=== PATIENT | male | born 1960 | race Native Hawaiian/Other Pacific Islander ===

== ENCOUNTER 2018-03-27 15:24 | Emergency (ER) | payer OTHER ==
[~2018-03-27] VITALS: Ht 188 cm; Wt 136.1 kg
[2018-03-27] MEDS ORDERED: ASA LOW DOSE81 MG PO (15:42)
[2018-03-27] MEDS ORDERED: METFORMIN ER1000 MG PO (15:42)
[2018-03-27] MEDS ORDERED: LISI20TA11 PO (15:43)
[2018-03-27] MEDS ORDERED: LIPITOR20 MG PO (15:43)
[2018-03-27] MEDS ORDERED: METO-837 PO (15:44)
[2018-03-27] MEDS ORDERED: GLIM2TAB PO (15:45)
[2018-03-27] MEDS ORDERED: CLON0.5T36 PO (15:46)
[2018-03-27] MEDS ORDERED: RANI150T78 PO (15:46)
[2018-03-27] MEDS ORDERED: ACID REDUCER20 MG PO (15:47)
[2018-03-27] MEDS ORDERED: BUPROPION HYDR150 MG PO (15:48)
[2018-03-27] MEDS ORDERED: METRONIDAZOLE500 MG PO (15:49)
[2018-03-27] MEDS ORDERED: INSUINJP SC (15:50)
[2018-03-27] MEDS ORDERED: AMIODARONE HYD200 MG PO (15:51)
[2018-03-27 17:03] LABS: PLATELET COUNT 177 K/uL (142-355)
[2018-03-27 17:11] LABS: POTASSIUM 4.4 mmol/L (3.6-5.2)
[2018-03-27 18:05] VITALS: BP 135/69; TEMP 98
== END 2018-03-27 18:05 | disposition home or self-care (01) ==
LOC: ED 15:24
PROVIDERS: Family Medicine
DX: S90.32XA Contusion of left foot, initial encounter (principal); S90.31XA Contusion of right foot, initial encounter; W18.39XA Other fall on same level, initial encounter; Y92.89 Other specified places as the place of occurrence of the external cause
CPT/HCPCS: 36415; 80053; 81000; 85027; 99283

== ENCOUNTER 2018-08-25 20:55 | Inpatient (IN) | payer OTHER ==
[~2018-08-25] VITALS: Ht 193 cm; Wt 145.8 kg
[~2018-08-25 20:55] MED LIST: ACID REDUCER20 MG PO; AMIODARONE HYD200 MG PO; ASA LOW DOSE81 MG PO; BUPROPION HYDR150 MG PO; CLON0.5T36 PO; GLIM2TAB PO; INSUINJP SC; LIPITOR20 MG PO; LISI20TA11 PO; METFORMIN ER1000 MG PO; METO-837 PO; METRONIDAZOLE500 MG PO; RANI150T78 PO
[2018-08-25 21:15] VITALS: BP 173/84; TEMP 98.3
[2018-08-26 01:40] LABS: PLATELET COUNT 172 K/uL (142-355)
[2018-08-26 01:51] LABS: POTASSIUM 4.2 mmol/L (3.6-5.2); SODIUM 134 mmol/L (136-145)
[2018-08-26 08:00] VITALS: BP 150/82; TEMP 97.9
[2018-08-26 08:18] VITALS: BP 173/84; TEMP 98.3; Ht 193 cm; Wt 145.8 kg
[2018-08-26 08:38] LABS: PLATELET COUNT 145 K/uL (142-355)
[2018-08-26 08:52] LABS: POTASSIUM 4.1 mmol/L (3.6-5.2)
[2018-08-26 12:00] VITALS: BP 110/56; TEMP 97.8
[2018-08-26 16:00] VITALS: BP 108/64; TEMP 97.8
[2018-08-26 20:00] VITALS: BP 147/66; TEMP 98.2
[2018-08-27] VITALS: BP 122/63; TEMP 98.8
[2018-08-27 04:00] VITALS: BP 125/64; TEMP 98.5
[2018-08-27 08:00] VITALS: BP 120/70; TEMP 98
[2018-08-27 10:53] LABS: PLATELET COUNT 147 K/uL (142-355)
[2018-08-27 11:05] LABS: POTASSIUM 4.2 mmol/L (3.6-5.2)
[2018-08-27 12:00] VITALS: BP 130/66; TEMP 98.5
[2018-08-27 16:00] VITALS: BP 97/49; TEMP 98.3
[2018-08-27 20:00] VITALS: BP 130/73; TEMP 98
[2018-08-28] VITALS: BP 123/60; TEMP 97.8
[2018-08-28 04:00] VITALS: BP 140/77; TEMP 98.3
[2018-08-28 04:58] LABS: PLATELET COUNT 162 K/uL (142-355)
[2018-08-28 05:17] LABS: POTASSIUM 3.9 mmol/L (3.6-5.2)
[2018-08-28 08:00] VITALS: BP 145/79; TEMP 98.1
[2018-08-28 12:00] VITALS: BP 171/78; TEMP 98.2
== END 2018-08-28 13:30 | disposition home or self-care (01) | DRG 439 ==
LOC: ED 20:55 → MED/SURG 08-26 02:22
PROVIDERS: Family Medicine; ADMIT Family Medicine
DX: K86.1 Other chronic pancreatitis (principal); E87.1 Hypo-osmolality and hyponatremia; F41.8 Other specified anxiety disorders; I48.2 Chronic atrial fibrillation; I25.10 Atherosclerotic heart disease of native coronary artery without angina pectoris; E78.49 Other hyperlipidemia; E66.01 Morbid (severe) obesity due to excess calories; Z68.39 Body mass index [BMI] 39.0-39.9, adult; Z71.3 Dietary counseling and surveillance; J44.9 Chronic obstructive pulmonary disease, unspecified; E11.9 Type 2 diabetes mellitus without complications; F17.200 Nicotine dependence, unspecified, uncomplicated; K21.9 Gastro-esophageal reflux disease without esophagitis
CPT/HCPCS: 36415; 74022; 80053; 80061; 82150; 82248; 82550; 82553; 83690; 84484; 85027; 85651; 86140; 93005; 94760; 96365; 96374; 96375; 99284; J0744; J1650; J1815; J1885; J2270; J2405; J3490

== ENCOUNTER 2019-12-14 20:43 | Emergency (ER) | payer OTHER ==
[~2019-12-14] VITALS: Ht 190.5 cm; Wt 131.1 kg
[2019-12-14 21:40] VITALS: BP 114/63; TEMP 98.1
== END 2019-12-14 21:40 | disposition home or self-care (01) ==
LOC: ED 20:43
DX: S62.601A Fracture of unspecified phalanx of left index finger, initial encounter for closed fracture (principal); W26.8XXA Contact with other sharp object(s), not elsewhere classified, initial encounter; Y93.89 Activity, other specified; Y92.018 Other place in single-family (private) house as the place of occurrence of the external cause
CPT/HCPCS: 90471; 90715; 96372; 99283; J0690; J1885

== ENCOUNTER 2020-05-14 02:48 | Observation (INO) | payer OTHER ==
[2020-05-14] VITALS (7 sets, daily range): BP systolic 141–174; BP diastolic 77–95; TEMP 98.1–98.6
[~2020-05-14] VITALS: Ht 193 cm; Wt 128.5 kg
[2020-05-14 04:13] LABS: PLATELET COUNT 221 K/uL (142-355)
[2020-05-14 04:17] LABS: POTASSIUM 4.5 mmol/L (3.6-5.2)
[2020-05-14 12:43] LABS: PLATELET COUNT 176 K/uL (142-355)
[2020-05-14 12:58] LABS: POTASSIUM 4.3 mmol/L (3.6-5.2)
[2020-05-14] MEDS ORDERED: OZEMPIC2 MG/1.51 SC (18:42)
[2020-05-15 03:39] VITALS: BP 139/79; TEMP 98.5
[2020-05-15 12:00] VITALS: BP 156/78; TEMP 98.4
[2020-05-15 16:00] VITALS: BP 152/70; TEMP 98.5
[2020-05-15 20:47] VITALS: BP 156/78; TEMP 98.4; Ht 193 cm; Wt 128.5 kg
== END 2020-05-15 18:30 | disposition home or self-care (01) ==
LOC: ED 02:48 → MED/SURG 07:20 → UNDODEPER 07:57 → MED/SURG 05-15 18:30
PROVIDERS: Family Medicine; ADMIT Internal Medicine; ATTEND Internal Medicine
DX: K85.80 Other acute pancreatitis without necrosis or infection (principal); E11.9 Type 2 diabetes mellitus without complications; Z79.4 Long term (current) use of insulin; I10 Essential (primary) hypertension; F34.1 Dysthymic disorder; F41.8 Other specified anxiety disorders; J44.9 Chronic obstructive pulmonary disease, unspecified
CPT/HCPCS: 36415; 80053; 81000; 82150; 83690; 84478; 85027; 94640; 94664; 94760; 96360; 96361; 96374; 96375; 99220; 99284; G0378; J0696; J1170; J2270; J2405; Q9963

== ENCOUNTER 2020-06-22 08:10 | Outpatient (CLI) | payer OTHER ==
[~2020-06-22 08:10] MED LIST changes: +OZEMPIC2 MG/1.51 SC
== END 2020-06-22 19:19 | disposition home or self-care (01) ==
LOC: NM 08:10
PROVIDERS: ATTEND Internal Medicine Gastroenterology
DX: Z01.818 Encounter for other preprocedural examination (principal); K85.80 Other acute pancreatitis without necrosis or infection; I25.10 Atherosclerotic heart disease of native coronary artery without angina pectoris; E11.9 Type 2 diabetes mellitus without complications; R10.9 Unspecified abdominal pain
CPT/HCPCS: A9537

== ENCOUNTER 2021-09-22 09:20 | Emergency (ER) | payer OTHER ==
[~2021-09-22] VITALS: Ht 190.5 cm; Wt 128.4 kg
[2021-09-22 09:25] VITALS: TEMP 97.4
[2021-09-22 10:04] LABS: PLATELET COUNT 199 K/uL (142-355)
[2021-09-22 10:10] LABS: POTASSIUM 4.4 mmol/L (3.6-5.2)
[2021-09-22 11:45] VITALS: BP 134/72
== END 2021-09-22 11:45 | disposition home or self-care (01) ==
LOC: ED 09:20
PROVIDERS: Hospitalist
DX: R10.84 Generalized abdominal pain (principal); N13.2 Hydronephrosis with renal and ureteral calculous obstruction
CPT/HCPCS: 36415; 80053; 80320; 81000; 83690; 85027; 93005; 96360; 96365; 96374; 96375; 99284; J0696; J1170; J1885; J2405; Q9963

== ENCOUNTER 2022-06-18 22:08 | Emergency (ER) | payer OTHER ==
[~2022-06-18] VITALS: Ht 190.5 cm; Wt 123.8 kg
[2022-06-18 22:15] VITALS: TEMP 98.6
[2022-06-19 00:01] LABS: PLATELET COUNT 294 K/uL (142-355)
[2022-06-19 00:11] LABS: POTASSIUM 4.6 mmol/L (3.6-5.2)
[2022-06-19 00:17] LABS: PARTIAL THROMBOPLASTIN TIME 27.4 SECONDS (24.5-33.6)
[2022-06-19 03:00] VITALS: BP 112/65
== END 2022-06-19 03:00 | disposition home or self-care (01) ==
LOC: ED 22:08
PROVIDERS: Family Medicine
DX: R07.89 Other chest pain (principal); R10.12 Left upper quadrant pain; N20.0 Calculus of kidney; Z87.442 Personal history of urinary calculi; R06.02 Shortness of breath
CPT/HCPCS: 36415; 80053; 82150; 82550; 83690; 84484; 85027; 85610; 85730; 93005; 94664; 96372; 99283; J1885

== ENCOUNTER 2022-09-20 19:53 | Emergency (ER) | payer OTHER ==
[~2022-09-20] VITALS: Ht 190.5 cm; Wt 123.4 kg
[2022-09-20 20:00] VITALS: TEMP 99
[2022-09-20 21:38] VITALS: BP 96/57
== END 2022-09-20 21:38 | disposition home or self-care (01) ==
LOC: ED 19:53
PROC: 2W3QX1Z Immobilization of Right Lower Leg using Splint (ICD-10-PCS; principal; 2022-09-20)
DX: S82.831A Other fracture of upper and lower end of right fibula, initial encounter for closed fracture (principal); I25.10 Atherosclerotic heart disease of native coronary artery without angina pectoris; Z98.890 Other specified postprocedural states; J44.9 Chronic obstructive pulmonary disease, unspecified; V28.49XA Other motorcycle driver injured in noncollision transport accident in traffic accident, initial encounter; Y92.410 Unspecified street and highway as the place of occurrence of the external cause; F17.210 Nicotine dependence, cigarettes, uncomplicated
CPT/HCPCS: 96374; 96375; 99284; J1170; J2405